=== PATIENT | female | born 1995 | race Caucasian/White ===

== ENCOUNTER 2020-08-05 21:35 | Emergency (ER) | payer OTHER ==
[~2020-08-05 21:35] MED LIST: COLACE 100MG C100 MG PO
[2020-08-05] MEDS ORDERED: LODINE CAP 300300 MG PO (21:59)
[2020-08-05] MEDS ORDERED: SILVADENE CREAM20 GM TOP (21:59)
== END 2020-08-05 22:27 | disposition home or self-care (01) ==
LOC: ER1 21:35
DX: T23.232A Burn of second degree of multiple left fingers (nail), not including thumb, initial encounter (principal); Z23 Encounter for immunization; X08.8XXA Exposure to other specified smoke, fire and flames, initial encounter; Y92.009 Unspecified place in unspecified non-institutional (private) residence as the place of occurrence of the external cause
CPT/HCPCS: 90471; 90715; 99283